=== PATIENT | male | born 2000 | race Caucasian/White ===

== ENCOUNTER 2025-08-07 02:19 | Emergency (ER) | payer OTHER, SELFPAY ==
[2025-08-07 02:26] VITALS: BP 131/91
[2025-08-07 02:32] VITALS: BP 131/91
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
[2025-08-07 02:50] VITALS: BMI 20.3
[2025-08-07] MEDS: MOTRIN 600 MG PO (03:31)
[2025-08-07 04:00] VITALS: BP 131/77
== END 2025-08-07 04:50 | disposition home or self-care (01) ==
LOC: EMR 02:19
PROVIDERS: EMERGENCY PHYSICIAN Emergency Medicine; FAMILY PHYSICIAN Family Medicine
DX: S00.83XA Contusion of other part of head, initial encounter (principal); S09.90XA Unspecified injury of head, initial encounter; Y04.0XXA Assault by unarmed brawl or fight, initial encounter
CPT/HCPCS: 99284; 70450; 70486; 72125